=== PATIENT | female | born 1935 | race African-American/Black ===

== ENCOUNTER 2016-11-13 21:55 | Inpatient (IN) | payer OTHER ==
--- NOTE | ~2016-11-13 | DS ---
Discharge Summary [facility] [address] [place]. [address] NAME: JAMES SINGH : 37 STATUS : DIS IN PAT#: [id number] AGE: 80 ADM/REG DATE : 11/13/16 MR#: [id number] REPORT SERV DATE: 11/17/16 DICTATED BY: LASHAUN AMEZQUITA DATE: 11/16/16 REPORT STATUS : Draft TRANSCRIBED BY: MODL DATE: 11/16/16 ADMISSION DATE: 11/13/2016 DISCHARGE DATE: 11/16/2016 Date of transfer to detention facility is 11/16/2016. CONDITION ON DISCHARGE: Stable. DISPOSITION: Discharge to [facility], which is detention facility. DIAGNOSIS ON DISCHARGE: 1. 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 2. Urinary tract infection with urine culture positive for E. coli -the patient has been treated with IV Rocephin for four days and will continue to finish up her antibiotic course by mouth for a total of seven days. 3. The patient also has multiple comorbidities that include uncontrolled diabetes mellitus, hypertension, dyslipidemia, which are all chronic and all of these problems will require fine tuning and proper medication administration at the detention facility. BRIEF HOSPITAL COURSE: The patient is a 80-year-old female who was brought in because of confusion and frequent falls. Please see history and physical exam for details. Essentially, the patient was admitted with rule out stroke and workup was per stroke protocol. CT scan and MRI of the brain revealed bilateral old basal ganglia lacunar infarcts which are old, and this patient probably has chronic encephalopathy, aphasia, and multiple falls, for a while now. However, as the patient is unable to take care of herself at this time and has other multiple comorbidities, including uncontrolled diabetes mellitus with an A1c of greater than 10, hypertension, dyslipidemia, and obesity, the patient will be transferred to detention facility. The patient has already been started on aspirin 325 mg and Lipitor 80 mg once a day for prevention of further events. The patient will continue to take her blood pressure medicine, losartan HCT, and other medications, which will be mentioned in the following paragraphs. The patient will be completing the course of her antibiotics by taking Ceftin 500 mg p.o. b.i.d. for the next three days only and stop. She will be going on the rest of the following chronic medications that will include amlodipine 10 mg p.o. once a day, aspirin 325 mg p.o. once a day, Lipitor 80 mg p.o. once a day, Coreg 12.5 mg p.o. b.i.d., insulin sliding scale level 3, and also long-acting insulin, which will be Levemir 15 units subcutaneously given daily. The patient will also continue losartan HCT 100/25 one tablet p.o. daily, Tylenol 650 mg p.o. q.4 hours p.r.n. for pain, the patient will also continue taking Phenergan 6.25 mg IV every four hours p.r.n. for pain. The Phenergan can be given by IM, but this is only p.r.n. for nausea, vomiting. The patient will also be on antibiotics as mentioned above for the next three days only. A prescription has been given for a 30 day supply of aspirin 325 mg and Lipitor 80 mg. The rest of the medications, the patient should have her home Discharge Summary [address] [address] NAME: JAMES SINGH : 37 STATUS : DIS IN PAT#: [id number] AGE: 80 ADM/REG DATE : 11/13/16 MR#: [id number] REPORT SERV DATE: 11/17/16 DICTATED BY: LASHAUN AMEZQUITA DATE: 11/16/16 REPORT STATUS : Draft TRANSCRIBED BY: MARGIE DATE: 11/16/16 medications. The only other prescription is for Ceftin 500 mg p.o. b.i.d. for three days. Hence, the patient is being sent to a detention facility in stable condition and the most recent labs I have on this patient include the following; on 11/15/2016, the patient had electrolyte profile that showed normal electrolytes, BUN is 16, creatinine is 0.9. Her WBC count is 8.7, hemoglobin 12.2, hematocrit 36.6, and her platelets are 285. A1c came back greater than 10 and urine culture positive for greater than 100,000 colony count of E. coli pansensitive. As mentioned above, CT scan and MRI both showed old bilateral basal ganglia, probably lacunar infarcts which are old, which are responsible for present condition that the patient is in, which is why she cannot take care of herself at this time. Hence, she will be moved to SNF today. I have spent about 40 minutes in coordinating discharge care of this patient including face- to-face encounter and summarizing this discharge. RIDGE/MARGIE Lashaun Amezquita M.D. / [id number] CC: Syed Narvaez M.D.
--- NOTE | ~2016-11-13 | EEG ---
Electroencephalogram [place] [id number] [place]. [address] NAME: JAMES SINGH : 37 STATUS : ADM IN PAT#: [id number] AGE: 80 ADM/REG DATE : 11/13/16 MR#: [id number] REPORT SERV DATE: 11/15/16 DICTATED BY: ESTER ELISE DATE: 11/15/16 REPORT STATUS : Draft TRANSCRIBED BY: MODL DATE: 11/15/16 EEG NUMBER: [id number] REASON FOR EEG: Altered mental status, encephalopathy. REQUESTING PHYSICIAN: Noemi Velasco M.D. and Greta Harmon, [facility]. INTERPRETING PHYSICIAN: Ester Elise M.D., Neurology. 23 surface electrodes, 10-20 international placement was used. The patient was noted to be awake, drowsy, and asleep throughout the study. Photic stimulation was performed. Video monitoring was utilized. The patient appeared cooperative throughout the study. The background activity consisted of moderate voltage, relatively well organized 7-8 cycles per second located in the posterior head regions during the awake portion of the recording. Increase of slower frequencies was noted during drowsiness. The slowing was most prominent in the frontal and temporal regions, left slightly greater than the right. Photic stimulation did not bring out additional abnormalities. No true driving response was seen. No significant asymmetry of cerebral activity was noted during this recording. No paroxysmal epileptiform activity was detected. monitoring and evaluation advisor showed sinus rhythm, rate of approximately 68 beats per minute. IMPRESSION: MILDLY ABNORMAL EEG CHARACTERIZED BY PRESENCE OF DIFFUSE SLIGHT SLOWING OF BACKGROUND ACTIVITY, SLIGHT INCREASE OF SLOWER FREQUENCIES IN ANTERIOR-FRONTAL TEMPORAL REGIONS OCCURRED DURING DROWSINESS. CLINICAL CORRELATION IS RECOMMENDED. THE PATIENT APPEARED DROWSY THROUGHOUT THE MOST OF THE RECORDING. MARILIN/MARGIE Ester Elise MD / [id number] CC: Syed Narvaez M.D.
--- NOTE | ~2016-11-13 | DS ---
Discharge Summary [place] [id number] [facility] [place]. [address] NAME: JAMES SINGH : 37 STATUS : DIS IN PAT#: [id number] AGE: 80 ADM/REG DATE : 11/13/16 MR#: [id number] REPORT SERV DATE: 11/17/16 DICTATED BY: LASHAUN AMEZQUITA DATE: 11/16/16 REPORT STATUS : Draft TRANSCRIBED BY: MODL DATE: 11/16/16 ADMISSION DATE: 11/13/2016 DISCHARGE DATE: 11/16/2016 ADDENDUM: Before sending patient to [facility], we will get a speech therapy evaluation on her to evaluate for dysphagia and recommended a diet at this time. However, patient does not want to go on feeding tube. Hence, we will probably end up with sending her on soft mechanical diet with aspiration precautions. RIDGE/MARGIE Lashaun Amezquita M.D. / [id number] CC: Syed Narvaez M.D.
--- NOTE | ~2016-11-13 | CN ---
Consultation Report [facility] [address] [place]. [address] NAME: JAMES SINGH : 37 STATUS : ADM Shanice PAT#: [id number] AGE: 80 ADM/REG DATE : 11/13/16 MR#: [id number] REPORT SERV DATE: 11/14/16 DICTATED BY: GRETA VILLASENOR DATE: 11/14/16 REPORT STATUS : Draft TRANSCRIBED BY: MODL DATE: 11/14/16 NEUROLOGY CONSULTATION DATE OF CONSULTATION: 11/14/2016 HOSPITALIST: Dr. Noemi Velasco REASON FOR CONSULTATION: Possible acute stroke/stroke code, which was activated at noon today. HISTORY OF PRESENT ILLNESS: The patient is a 80-year-old female, who mentioned that her health has slowly deteriorated over the last month. She has been having frequent falls. In fact, over the last couple of days, it was reported that she fell and landed on her left hip. She mentions that she has been unable to take care of herself and she now lives with her son. Today, her nurse mentioned that she seemed to be her "baseline" self at 0930 hours but then at approximately 10 o'clock, she had "slurred speech" and seemed to be weak on the left side. At noon, Neurology was noted of these changes and her NIH stroke scale was calculated to 12. She had some confusion. She could only specify her name. She did not know the date, she did not know why she was in the hospital, she could only follow one simple command. She also seemed weaker on the left side than the right and she had a left pronator drift. She was dysarthric and had difficulty lifting her legs off the bed. Consequently, a stroke code was called and she was taken down to CT scan for a CT of the brain. The patient did mention that she had a reaction to contrast dye in the past, so a CTA was not done. CT of her brain came back negative for acute stroke. At that point, she seemed to perk up a little bit and consequently tPA was not given. The patient mentioned that she can move her legs but did not move her legs because of pain. She was taken over to X-Ray and had an x-ray of the hip and pelvis, which came back negative for fracture. The patient was brought back to her room and will undergo an MRI of the brain and MRA of the head and neck along with EEG, echocardiogram and lab testing. PAST MEDICAL HISTORY: Diabetes mellitus type 2, hypertension, obesity, medication noncompliance, frequent falls, UTIs, anxiety, and depression. PAST SURGICAL HISTORY: ANJELICA with BSO. HOME MEDICATION LIST: Amlodipine 10 mg daily, carvedilol 12.5 mg b.i.d., Humalog insulin subcu a.c. and at bedtime, losartan HCT 100/12.5 mg daily, lovastatin 40 mg at bedtime, metformin 500 mg b.i.d., Toujeo SoloSTAR 20 units at bedtime, and tramadol 50 mg q.6 hours p.r.n. pain. ALLERGIES: DEMEROL AND IVP DYE. SOCIAL HISTORY: The patient is a . She lives with her son. She had four sons, two of whom . She does not smoke, drink alcohol, or use illicits. Consultation Report [address] [address] NAME: JAMES SINGH : 37 STATUS : ADM Shanice PAT#: [id number] AGE: 80 ADM/REG DATE : 11/13/16 MR#: [id number] REPORT SERV DATE: 11/14/16 DICTATED BY: GRETA VILLASENOR DATE: 11/14/16 REPORT STATUS : Draft TRANSCRIBED BY: MARGIE DATE: 11/14/16 FAMILY HISTORY: The patient's mother lived to [facility], cause of is failure to thrive. Her father at a young age from cancer. She has eight sisters and five brothers. Coronary artery disease and cancer seems to be prevalent. REVIEW OF SYSTEMS: See HPI. PHYSICAL EXAMINATION: GENERAL: The patient is a 80-year-old female, who is afebrile. VITAL SIGNS: Heart rate 74, respiratory rate 16, O2 saturations on room air 98%, blood pressure 143/67. NEUROLOGIC: The patient is slightly drowsy but will awaken to verbal and noxious stimuli. Pupils are 2 mm, they are reactive. Extraocular movements are intact. Vision via confrontation is full in both everett. No facial droop. No tongue deviation. No sensory deficits comparing the left and right side of the face. She is unable to perform finger-to- nose with the left arm but with the right, there is no ataxia. She does have a pronator drift on the left. No reported diminished sensation comparing the left to the right. Upper DTRs are 1+ bilaterally. Upper extremity strength is 3/5 on the left and 4/5 on the right. In the lower extremities, the patient cannot lift either leg off the bed. She does not report any sensory deficits. Patellar reflexes are 1+ bilaterally. Downgoing toes. NECK: No carotid bruits, JVD, or thyromegaly. CHEST: Lung sounds reveal few scattered crackles in the bases. CARDIAC: Regular rate and rhythm. LABORATORY DATA: CBC is normal. BMP shows potassium of 3.5, glucose 295, INR 1, TSH 1.79. Urinalysis and urine culture are positive. Hip and pelvic x-rays are negative for fractures. CT of the brain, no acute changes. NIH Stroke Scale is calculated as a 12. ASSESSMENT/PLAN: 1. Sudden onset of dysarthria and left-sided weakness, etiology unknown. The patient will undergo an MRI of the brain without gadolinium and an MRA of the head and neck. She will also have echocardiogram and EEG. Additional lab work will be drawn. PT, OT, and Speech Therapy will be consulted. Case Management will be consulted for rehab placement. 2. Severe hypertension. Optimal systolic blood pressure will be 140-180 mmHg. 3. Depression. It is uncertain as to whether this is related to stroke or if she was depressed prior to admission. This will be managed and treated per hospitalist team. 4. Medication noncompliance. The patient and family education will be done prior to discharge. Thank you again for including us in consultation. We will follow with you. JORGE ALBERTO/MARGIE Consultation Report [facility] [address] [facility] [place]. [address] NAME: JAMES SINGH : 37 STATUS : ADM Shanice PAT#: [id number] AGE: 80 ADM/REG DATE : 11/13/16 MR#: [id number] REPORT SERV DATE: 11/14/16 DICTATED BY: GRETA VILLASENOR DATE: 11/14/16 REPORT STATUS : Draft TRANSCRIBED BY: MARGIE DATE: 11/14/16 Greta Villasenor, [facility]- / [id number] CC: Syed Narvaez M.D.
--- NOTE | ~2016-11-13 | HP ---
History And Physical [facility] [address] [place]. [address] NAME: JAMES UGARTE : 37 STATUS : ADM Shanice PAT#: [id number] AGE: 80 ADM/REG DATE : 11/13/16 MR#: [id number] REPORT SERV DATE: 11/14/16 DICTATED BY: AMILCAR LITTLE DATE: 11/14/16 REPORT STATUS : Draft TRANSCRIBED BY: MODL DATE: 11/14/16 DATE OF ADMISSION: 11/13/2016 CHIEF COMPLAINT: Frequent falls, unable to take care of herself. HISTORY OF PRESENT ILLNESS: This is a 80-year-old female, who presents to the emergency room at [facility] with the above-mentioned complaint. History was obtained from the patient and reviewing data available on the [employer] system. According to according to Mrs. Ugarte, she had been in the usual state of health over the past month or so her health has slowly deteriorated. She says she has frequent falls, and unable to take care of herself. She has hypertension, diabetes mellitus, and is unable to even remember to take her medications and sometimes it is very high. Today, her daughter brought her to the emergency room with similar complaints. In the emergency room, she had uncontrolled hypertension, diabetes mellitus with hyperglycemia and had a urinary tract infection as well. She is known to have recurrent falls. Hospitalist Service was asked to admit her for further evaluation and treatment. At the time of my evaluation, she appeared very tearful, probably depressed. She denied any chest pain or palpitations. She has no orthopnea. She has no cough, hemoptysis, night sweats, or weight loss. She has not had any loss of consciousness with these falls according to her. She denied any fevers, chills, or dysuria. She denied any nausea, vomiting, or diarrhea. She has not seen any blood anywhere. She denied any hematemesis, hematochezia, or hematuria. No other history of recent travel or exposures other than those mentioned above. PAST MEDICAL HISTORY: Significant for history of diabetes mellitus type 2 and hypertension. SOCIAL HISTORY: She does not smoke, drink, or use recreational drugs. FAMILY HISTORY: Noncontributory. MEDICATIONS: Her medications at home were reviewed by me in the chart today and re-ordered by me. REVIEW OF SYSTEMS: As in history of present illness. All other systems were reviewed in detail and are quite unremarkable. PHYSICAL EXAMINATION: GENERAL: This is a pleasant 80-year-old, not in any acute distress. HEENT: Her head is atraumatic and normocephalic. She is alert, awake, oriented to time, place, and person. Her pupils are equal, reacting to light and accommodating. External ocular muscles are intact. Membranes are moist and pink. Sclerae are nonicteric. NECK: Supple with no jugular venous distention, lymphadenopathy, or thyromegaly. History And Physical [address] [address] NAME: JAMES UGARTE : 37 STATUS : ADM Shanice [facility]#: [id number] AGE: 80 ADM/REG DATE : 11/13/16 MR#: [id number] REPORT SERV DATE: 11/14/16 DICTATED BY: AMILCAR LITTLE DATE: 11/14/16 REPORT STATUS : Draft TRANSCRIBED BY: MARGIE DATE: 11/14/16 LUNGS: Auscultation of her lungs reveals moderate air entry bilaterally with no wheezes, rubs, or crackles. HEART: Heart sounds are regular with no murmurs, rubs, or gallops. ABDOMEN: Soft, nontender. Bowel sounds are present. EXTREMITIES: Showed no cyanosis, clubbing, or edema. NEUROLOGIC: Grossly intact. No focal sensory or motor deficits. Higher functions appeared intact. She is able to move all four extremities. VITAL SIGNS: Her temperature is 98.8, pulse 99, respirations 20 a minute, and blood pressure was 217/98 upon arrival. Oxygen saturations are 100% breathing 2 L of oxygen via nasal cannula. LABORATORY DATA: Reviewed on the [employer] system showed a normal CMP with a blood glucose of 321. Troponin was 0.02 and CBC showed a normal white blood cell count, hemoglobin, hematocrit, and platelet count. Urinalysis showed moderate leukocyte esterase, nitrite was positive with about 84 wbc's, and rare bacteria. Films of the chest x-ray were reviewed by me on the PACS today and interpreted by me. Per my interpretation, there is normal bony architecture with no lobar consolidations or pleural effusions seen in the lung everett. IMPRESSION: 1. Uncontrolled hypertension. 2. Recurrent falls. 3. Urinary tract infection. 4. Diabetes mellitus type 2, uncontrolled with hyperglycemia. 5. Depression. PLAN: We will admit Mrs. Ugarte to the Hospitalist Service with telemetry for a 24-hour observation period. We will start her on hydralazine or clonidine for blood pressure and titrate to control her pressures. Pharmacy needs to get her medications from her pharmacy in the morning. After cultures are drawn, we will start her on empiric IV antibiotics. We will start her on Rocephin. We will start her on NovoLog insulin per sliding scale for blood sugar control and place her on unfractionated heparin for DVT prophylaxis. She may actually benefit from an SSRI as well. She is very tearful, and we will go ahead and order this. I have discussed the above plans with the patient and questions were answered. She is agreeable to the above recommendations. Hospitalist Service will be following her during her stay here. /MARGIE ilcar Little M.D. / [id number] History And Physical [address] [address] NAME: JAMES UGARTE : 37 STATUS : ADM Shanice PAT#: [id number] AGE: 80 ADM/REG DATE : 11/13/16 MR#: [id number] REPORT SERV DATE: 11/14/16 DICTATED BY: AMILCAR LITTLE DATE: 11/14/16 REPORT STATUS : Draft TRANSCRIBED BY: MARGIE DATE: 11/14/16 CC: MD Ismael Shannon M.D.
[~2016-11-13 21:55] MED LIST: GLUCPH PO; V80 PO
[2016-11-13] MEDS ORDERED: *UNABLE1 (22:25)
[2016-11-13 22:34] LABS: ASCORBIC ACID (UR NOT ORDER) NEG (NEG); BILIRUBIN, URINE NEGATIVE (NEG); ER URINALYSIS TAT 0 Hrs 14 Mins; KETONE, URINE NEGATIVE (NEG); LEUKOCYTE ESTERASE(NOT OR MOD (NEG); NITRITE (URINE) POS (NEG); WBC (NOT ORDERED) (RFLEX) 84 (0-5)
[2016-11-13 22:52] LABS: BASOPHILS 0.5 %; BASOPHILS ABSOLUTE 0.05 10/3/uL (0.0-0.16); EOSINOPHILS 1.2 %; EOSINOPHILS ABSOLUTE 0.11 10/3/uL (0.0-0.53); ER CBC TAT 0 Hrs 07 Mins; HEMATOCRIT 35.7 % (36.0-48.0); HEMOGLOBIN 12.2 g/dL (12.0-16.0); IMMATURE GRANULOCYTES 0.2 %; IMMATURE GRANULOCYTES ABSOLUTE 0.02 10/3/uL (0.0-0.11); LYMPHOCYTES 39.7 %; LYMPHOCYTES ABSOLUTE 3.71 10/3/uL (0.67-4.30); MEAN CORPUS HGB CONC 34.2 g/dL (32.0-36.0); MEAN CORPUSCULAR HEMOGLOB 28.6 pg (26.0-34.0); MEAN CORPUSCULAR VOLUME 83.6 fL (80-100); MEAN PLATELET VOLUME 11.4 fL (9.2-13.0); MONOCYTES 4.1 %; MONOCYTES ABSOLUTE 0.38 10/3/uL (0.21-1.20); NEUTROPHILS 54.3 %; NEUTROPHILS ABSOLUTE 5.08 10/3/uL (2.02-8.40); PLATELET COUNT 331 10/3/uL (150-400); RBC DISTRIBUTION WIDTH 12.9 % (12.0-16.0); RED CELL COUNT 4.27 10/6/uL (4.0-5.6); WHITE BLOOD CELLS 9.4 10/3/uL (4.5-10.5)
[2016-11-13 22:57] LABS: MANUAL DIFF NO %
[2016-11-13 23:09] LABS: BUN (BLOOD UREA NITROGEN) 15 MG/DL (6-23); CALCIUM, SERUM 8.9 MG/DL (8.5-10.4); CHEST PAIN PROFILE TAT 0 Hrs 00 Mins; CHLORIDE, SERUM 104 MMOL/L (96-112); CO2 (CARBON DIOXIDE) 28 MMOL/L (24-34); CREATININE 0.86 MG/DL (0.55-1.02); GFR AFRICAN AMERICAN 75 ML/MIN (>=60); GFR NON AFRICAN AMERICAN 65 ML/MIN (>=60); GLUCOSE, SERUM 321 MG/DL (60-99); POTASSIUM, SERUM 3.8 MMOL/L (3.5-5.3); SODIUM, SERUM 139 MMOL/L (135-148); TROPONIN I 0.02 NG/ML (<0.05)
[2016-11-14 04:44] LABS: HEMATOCRIT 34.4 % (36.0-48.0); HEMOGLOBIN 11.6 g/dL (12.0-16.0); MEAN CORPUS HGB CONC 33.7 g/dL (32.0-36.0); MEAN CORPUSCULAR HEMOGLOB 28.4 pg (26.0-34.0); MEAN CORPUSCULAR VOLUME 84.1 fL (80-100); MEAN PLATELET VOLUME 11.6 fL (9.2-13.0); PLATELET COUNT 282 10/3/uL (150-400); RBC DISTRIBUTION WIDTH 12.8 % (12.0-16.0); RED CELL COUNT 4.09 10/6/uL (4.0-5.6); WHITE BLOOD CELLS 8.1 10/3/uL (4.5-10.5)
[2016-11-14 04:45] LABS: MANUAL DIFF YES %
[2016-11-14 05:13] LABS: BUN (BLOOD UREA NITROGEN) 14 MG/DL (6-23); CALCIUM, SERUM 8.8 MG/DL (8.5-10.4); CHLORIDE, SERUM 107 MMOL/L (96-112); CO2 (CARBON DIOXIDE) 25 MMOL/L (24-34); CREATININE 0.83 MG/DL (0.55-1.02); GFR AFRICAN AMERICAN 78 ML/MIN (>=60); GFR NON AFRICAN AMERICAN 68 ML/MIN (>=60); GLUCOSE, SERUM 295 MG/DL (60-99); PHOSPHORUS, SERUM 3.3 MG/DL (2.5-4.5); POTASSIUM, SERUM 3.5 MMOL/L (3.5-5.3); SODIUM, SERUM 141 MMOL/L (135-148)
[2016-11-14 05:52] LABS: LYMPHOCYTES 34 %; LYMPHOCYTES ABSOLUTE (CALC) 2.75 10/3/uL (0.67-4.30); MONOCYTES 2 %; MONOCYTES ABSOLUTE (CALC) 0.16 10/3/uL (0.21-1.20); NEUTROPHILS ABSOLUTE (CALC) 5.18 10/3/uL (2.02-8.40); PLATELET ESTIMATE ADQ (ADEQUATE); RBC MORPHOLOGY NORM (NORMAL); SEGMENTED NEUTROPHIL (0) 64 %; TOTAL NUCLEATED CELLS 100
[2016-11-15 04:04] LABS: BASOPHILS 0.6 %; BASOPHILS ABSOLUTE 0.05 10/3/uL (0.0-0.16); EOSINOPHILS 1.5 %; EOSINOPHILS ABSOLUTE 0.13 10/3/uL (0.0-0.53); HEMATOCRIT 36.6 % (36.0-48.0); HEMOGLOBIN 12.2 g/dL (12.0-16.0); IMMATURE GRANULOCYTES 0.1 %; IMMATURE GRANULOCYTES ABSOLUTE 0.01 10/3/uL (0.0-0.11); LYMPHOCYTES 44.4 %; LYMPHOCYTES ABSOLUTE 3.87 10/3/uL (0.67-4.30); MEAN CORPUS HGB CONC 33.3 g/dL (32.0-36.0); MEAN CORPUSCULAR HEMOGLOB 27.7 pg (26.0-34.0); MEAN CORPUSCULAR VOLUME 83.2 fL (80-100); MEAN PLATELET VOLUME 11.8 fL (9.2-13.0); MONOCYTES 4.2 %; MONOCYTES ABSOLUTE 0.37 10/3/uL (0.21-1.20); NEUTROPHILS 49.2 %; NEUTROPHILS ABSOLUTE 4.29 10/3/uL (2.02-8.40); PLATELET COUNT 285 10/3/uL (150-400); RBC DISTRIBUTION WIDTH 12.9 % (12.0-16.0); WHITE BLOOD CELLS 8.7 10/3/uL (4.5-10.5)
[2016-11-15 04:05] LABS: MANUAL DIFF NO %
[2016-11-15 04:42] LABS: ALBUMIN 3.2 G/DL (3.5-5.0); BUN (BLOOD UREA NITROGEN) 16 MG/DL (6-23); CALCIUM, SERUM 9.1 MG/DL (8.5-10.4); CHLORIDE, SERUM 105 MMOL/L (96-112); CHOL/HDL RATIO(NOT ORDER) 4.6 (0-5); CHOLESTEROL 250 MG/DL (< 200); CO2 (CARBON DIOXIDE) 27 MMOL/L (24-34); CREATININE 0.91 MG/DL (0.55-1.02); GFR AFRICAN AMERICAN 70 ML/MIN (>=60); GFR NON AFRICAN AMERICAN 60 ML/MIN (>=60); HDL CHOLESTEROL 54 MG/DL (> 49); NON-HDL CHOLESTEROL 196 MG/DL (< 160); POTASSIUM, SERUM 3.5 MMOL/L (3.5-5.3); SGOT(AST) 8 U/L (5-40); SGPT(ALT) 9 U/L (5-65); SODIUM, SERUM 137 MMOL/L (135-148); TOTAL BILIRUBIN 0.5 MG/DL (0-1.2); TOTAL PROTEIN 7.2 G/DL (6.0-8.5)
[2016-11-15 04:44] LABS: ALKALINE PHOSPHATASE 74 U/L (45-117); DIRECT BILIRUBIN < 0.1 MG/DL (0.0-0.4); FOLATE 12.5 NG/ML (>5.2); GLUCOSE, SERUM 191 MG/DL (60-99); INDIRECT BILIRUBIN(NOT ORDER) 0.4 MG/DL (0.1-0.9); LDL CHOLESTEROL 164 MG/DL (< 130); TRIGLYCERIDE 163 MG/DL (< 150)
[2016-11-15] MEDS ORDERED: HUMALOG SC (11:35)
[2016-11-15] MEDS ORDERED: HYZAAR1 TAB PO (11:35)
[2016-11-15] MEDS ORDERED: COREG12 PO (11:35)
[2016-11-15] MEDS ORDERED: *UNABLE1 (11:35)
[2016-11-15] MEDS ORDERED: NORV10 PO (11:35)
[2016-11-15] MEDS ORDERED: ULTRAM50 PO (11:36)
[2016-11-15] MEDS ORDERED: MEVACOR40 MG PO (11:36)
[2016-11-15] MEDS ORDERED: GLUCPH PO (11:36)
[2016-11-15] MEDS ORDERED: TOUJEO (11:36)
== END 2016-11-16 17:59 | DRG 64 ==
LOC: ER 21:55 → 7NO 21:56
PROVIDERS: Emergency Medicine; Internal Medicine Pulmonary Disease
DX: I63.8 Other cerebral infarction (principal); G93.40 Encephalopathy, unspecified; E11.65 Type 2 diabetes mellitus with hyperglycemia; G81.94 Hemiplegia, unspecified affecting left nondominant side; N39.0 Urinary tract infection, site not specified; I10 Essential (primary) hypertension; F32.9 Major depressive disorder, single episode, unspecified; F41.9 Anxiety disorder, unspecified; R47.1 Dysarthria and anarthria; R29.712 NIHSS score 12; I69.318 Other symptoms and signs involving cognitive functions following cerebral infarction; I69.920 Aphasia following unspecified cerebrovascular disease; B96.20 Unspecified Escherichia coli [E. coli] as the cause of diseases classified elsewhere; E78.5 Hyperlipidemia, unspecified; Z91.14 Patient's other noncompliance with medication regimen; Z87.440 Personal history of urinary (tract) infections; Z91.81 History of falling; Z68.30 Body mass index [BMI] 30.0-30.9, adult; Z91.041 Radiographic dye allergy status; Z79.4 Long term (current) use of insulin
CPT/HCPCS: 70450; 70544; 70547; 70551; 71010; 73502-LT; 73502-RT; 80048; 80061; 80076; 81001; 82140; 82533; 82607; 82746; 82962; 83036; 83735; 84100; 84443; 84484; 85025; 85610; 85730; 87040; 87077; 87086; 87186; 92522-GN; 92610-GN; 93005; 93306; 95819; 96374; 97162-GP; 97166-GO; 97535-GO; 99285; A9270-GY